=== PATIENT | female | born 1970 | race Caucasian/White ===

== ENCOUNTER 2017-03-11 11:50 | Inpatient (IN) | payer MEDICARE, MEDICAID, OTHER ==
[~2017-03-11] VITALS: Ht 167.6 cm; Wt 55.7 kg
[2017-03-11 11:56] VITALS: BP 137/90; PULSE 126; RESP 20; TEMP 98.2; O2SAT 98
[2017-03-11 12:52] VITALS: BP 156/96; PULSE 115; RESP 20; TEMP 98; O2SAT 100
[2017-03-11] MEDS ORDERED: XANA1TAB2 PO (13:01)
[2017-03-11] MEDS ORDERED: GABA100C4 PO (13:01)
[2017-03-11] MEDS ORDERED: ADDE30XR PO (13:01)
--- NOTE | 2017-03-11 13:18 | PD ---
HPI Chief Complaint: Psychiatric Symptoms Time Seen by Provider: 13:03 Travel History International Travel<30 days: No Contact w/Intl Traveler<30days: No Traveled to known affect area: No History of Present Illness HPI Patient is a 47-year-old female who was brought to emergency room by police officers under a Lee act. As per PD, patient was wandering outside of other people's properties today. Reports concerns that she may have been trespassing. Patient at this time denies suicidal or homicidal ideations. Patient denies drugs or alcohol. PFSH Past Medical History Medical History: Denies Significant Hx ?: Not Past Surgical History Surgical History: No Previous Surgery Social History Alcohol Use: No Tobacco Use: No Substance Use: No Allergies-Medications (Allergen,Severity, Reaction): Coded Allergies: Penicillins (Verified Allergy, Intermediate, 03/11/17) hives Reported Meds & Prescriptions Reported Meds & Active Scripts Active Macrobid (Nitrofurantoin Monoh/Nitrofur Macro) 100 Mg Cap 100 Mg PO BID 10 Days Reported Gabapentin Unknown Strength Cap Unknown Dose PO BID Adderall Xr 24 HR (Amphetamine/Dextroamphetamine) 30 Mg Cap 30 Mg PO DAILY Once daily in the morning. Xanax (Alprazolam) 1 Mg Tab 1 Mg PO Q6H PRN Review of Systems General / Constitutional: No: Fever Eyes: No: Visual changes HENT: No: Headaches Cardiovascular: No: Chest Pain or Discomfort Respiratory: No: Shortness of Breath Gastrointestinal: No: Abdominal Pain Genitourinary: No: Dysuria Musculoskeletal: No: Pain Skin: No Rash Neurologic: No: Weakness Psychiatric: No: Depression Endocrine: No: Polydipsia Hematologic/Lymphatic: No: Easy Bruising Physical Exam Narrative GENERAL: nad SKIN: Focused skin assessment warm/dry. HEAD: Atraumatic. Normocephalic. EYES: Pupils equal and round. No scleral icterus. No injection or drainage. ENT: No nasal bleeding or discharge. Mucous membranes pink and moist. NECK: Trachea midline. No JVD. CARDIOVASCULAR: Regular rate and rhythm. No murmur appreciated. RESPIRATORY: No accessory muscle use. Clear to auscultation. Breath sounds equal bilaterally. GASTROINTESTINAL: Abdomen soft, non-tender, nondistended. Hepatic and splenic margins not palpable. MUSCULOSKELETAL: No obvious deformities. No clubbing. No cyanosis. No edema. NEUROLOGICAL: Awake and alert. No obvious cranial nerve deficits. Motor grossly within normal limits. Normal speech. PSYCHIATRIC: Appropriate mood and affect; insight and judgment normal. Denies si /hi Data Data Last Documented VS Vital Signs Date Time Temp Pulse Resp B/P (MAP) Pulse Ox O2 Delivery O2 Flow Rate FiO2 03/11/17 12:52 98.0 115 20 156/96 (116) 100 03/11/17 11:56 Room Air Orders Orders Complete Blood Count With Diff (03/11/17 12:29) Comprehensive Metabolic Panel (03/11/17 12:29) Urinalysis - C+S If Indicated (03/11/17 12:29) Psych Screen (03/11/17 12:29) Drug Screen, Random Urine (03/11/17 12:29) Alcohol (Ethanol) (03/11/17 12:29) Salicylates (Aspirin) (03/11/17 12:29) Tylenol (Acetaminophen) (03/11/17 12:29) Chest, Single Ap (03/11/17 15:37) Ecg Monitoring (03/11/17 15:37) Iv Access Insert/Monitor (03/11/17 15:37) Sodium Chloride 0.9% Flush (Ns Flush) (03/11/17 15:45) Sodium Chlor 0.9% 1000 Ml Inj (Ns 1000 M (03/11/17 15:45) Sodium Chlor 0.9% 1000 Ml Inj (Ns 1000 M (03/11/17 15:45) Diet Regular Basic (03/11/17 Lunch) Urine Culture (03/11/17 15:00) Ciprofloxacin 400 Mg Premix (Cipro 400 M (03/11/17 16:00) Haloperidol Inj (Haldol Inj) (03/11/17 16:30) Lorazepam Inj (Ativan Inj) (03/11/17 16:30) Blood Culture (03/11/17 16:22) Vascular Access Team Consult/P PRN (03/11/17 16:33) Vascular Poc Ultrasound (03/11/17 ) Labs Laboratory Tests Test 03/11/17 14:45 03/11/17 15:00 Salicylates Level LESS THAN 1.7 MG/DL White Blood Count 17.0 TH/MM3 Red Blood Count 4.27 MIL/MM3 Hemoglobin 13.1 GM/DL Hematocrit 39.6 % Mean Corpuscular Volume 92.8 FL Mean Corpuscular Hemoglobin 30.6 PG Mean Corpuscular Hemoglobin Concent 33.0 % Red Cell Distribution Width 14.2 % Platelet Count 266 TH/MM3 Mean Platelet Volume 9.0 FL Neutrophils (%) (Auto) 84.1 % Lymphocytes (%) (Auto) 8.4 % Monocytes (%) (Auto) 6.5 % Eosinophils (%) (Auto) 0.6 % Basophils (%) (Auto) 0.4 % Neutrophils # (Auto) 14.3 TH/MM3 Lymphocytes # (Auto) 1.4 TH/MM3 Monocytes # (Auto) 1.1 TH/MM3 Eosinophils # (Auto) 0.1 TH/MM3 Basophils # (Auto) 0.1 TH/MM3 CBC Comment AUTO DIFF Differential Comment AUTO DIFF CONFIRMED Urine Color COLORLESS Urine Turbidity HAZY Urine pH 6.0 Urine Specific Eure 1.001 Urine Protein NEG mg/dL Urine Glucose (UA) NEG mg/dL Urine Ketones NEG mg/dL Urine Occult Blood TRACE Urine Nitrite POS Urine Bilirubin NEG Urine Urobilinogen LESS THAN 2.0 MG/DL Urine Leukocyte Esterase MOD Urine RBC 1 /hpf Urine WBC 7 /hpf Urine Squamous Epithelial Cells 2 /hpf Urine Amorphous Sediment RARE Microscopic Urinalysis Comment CULTURE INDICATED Blood Urea Nitrogen 19 MG/DL Creatinine 1.13 MG/DL Random Glucose 103 MG/DL Total Protein 8.4 GM/DL Albumin 4.1 GM/DL Calcium Level 9.4 MG/DL Alkaline Phosphatase 81 U/L Aspartate Amino Transf (AST/SGOT) 27 U/L Alanine Aminotransferase (ALT/SGPT) 26 U/L Total Bilirubin 0.5 MG/DL Sodium Level 136 MEQ/L Potassium Level 4.6 MEQ/L Chloride Level 103 MEQ/L Carbon Dioxide Level 21.6 MEQ/L Anion Gap 11 MEQ/L Estimat Glomerular Filtration Rate 52 ML/MIN Urine Opiates Screen NEG Acetaminophen Level LESS THAN 2.0 MCG/ML Urine Barbiturates Screen NEG Urine Amphetamines Screen POS Urine Benzodiazepines Screen NEG Urine Cocaine Screen NEG Urine Cannabinoids Screen NEG Ethyl Alcohol Level LESS THAN 3 MG/DL MDM Medical Decision Making Medical Screen Exam Complete: Yes Emergency Medical Condition: Yes Medical Record Reviewed: Yes Interpretation(s) Vital Signs Date Time Temp Pulse Resp B/P (MAP) Pulse Ox O2 Delivery O2 Flow Rate FiO2 03/11/17 12:52 98.0 115 20 156/96 (116) 100 03/11/17 11:56 98.2 126 20 137/90 (106) 98 Room Air Differential Diagnosis depression, bipolar disorder, drug abuse Narrative Course Psychiatric screening labs ordered. Patient denies si/hi at this time. Patient contracts for safety Patient is tachycardic with a white blood cell count of 17,000, patient with SIRS criteria. Infection was likely from UTI. I discussed with patient need for an IV line for IV antibiotics as well as for IV fluids. She is currently refusing further workup. Patient is here under Lee acts and will require chemical sedation for her safety and for further workup prior to being cleared for psychiatric screening. Diagnosis Primary Impression: UTI (urinary tract infection) Additional Impression: SIRS (systemic inflammatory response syndrome) Patient Instructions: General Instructions Additional Instructions: Please provide patient with a copy of their lab work and studies at discharge* * Please follow up with your primary care doctor in 2-3 days Return to the ER if symptoms worsen or progress Return to the ER as needed Please take all antibiotics as prescribed Please follow-up with all cultures from today Med/Other Pt SpecificInfo: Prescription(s) given Scripts Nitrofurantoin Monohydrate Macrocrystals (Macrobid) 100 Mg Cap 100 MG PO BID for Infection for 10 Days, #20 CAP 0 Refills Prov: Isabela Pina DO 03/11/17 Isabela Pina DO Mar 11, 2017 13:18
[2017-03-11 15:33] LABS: AUTOMATED NEUTROPHIL # 14.3 TH/MM3 (1.8-7.7); BASOPHIL # 0.1 TH/MM3 (0-0.2); BASOPHIL % 0.4 % (0.0-2.0); EOSINOPHIL # 0.1 TH/MM3 (0-0.4); EOSINOPHIL % 0.6 % (0.0-4.0); HEMATOCRIT 39.6 % (35.0-46.0); LYMPH % 8.4 % (9.0-44.0); LYMPHOCYTE # 1.4 TH/MM3 (1.0-4.8); MEAN CELL VOLUME 92.8 FL (80.0-100.0); MEAN CORPUSCULAR HEMOGLOBIN 30.6 PG (27.0-34.0); MONO % 6.5 % (0.0-8.0); NEUT % 84.1 % (16.0-70.0); PLATELET COUNT 266 TH/MM3 (150-450); RED BLOOD COUNT 4.27 MIL/MM3 (4.00-5.30); RED CELL DISTRIBUTION WIDTH 14.2 % (11.6-17.2)
[2017-03-11 15:35] LABS: HEMO FLAGS AUTO DIFF
[2017-03-11 15:41] LABS: BLOOD, URINE TRACE (NEG); COMMENT (UR) CULTURE INDICATED; CULTURE IF INDICATED CULTURE INDICATED; GLUCOSE,URINE NEG (NEG); KETONE, URINE NEG (NEG); NITRITE,URINE POS (NEG); SQUAMOUS EPITHELIAL CELL URINE 2 /hpf (0-5); URINE COLOR COLORLESS (YELLW/STRAW)
[2017-03-11] MEDS ORDERED: SODIUM CHLOR 0.9% 1000 ML INJ 1,000 ML IV ONE ×2 (15:45)
[2017-03-11] MEDS ORDERED: SODIUM CHLORIDE 0.9% FLUSH 10 ML FLUSH IVF PRN (15:45)
[2017-03-11] MEDS ORDERED: MACR100C2 PO (15:51)
[2017-03-11 15:56] LABS: ALKALINE PHOSPHATASE 81 U/L (45-117); TOTAL BILIRUBIN ADULT 0.5 MG/DL (0.2-1.0)
[2017-03-11 15:57] LABS: ALT (GPT) 26 U/L (10-53); ANION GAP 11 MEQ/L (5-15); AST (GOT) 27 U/L (15-37); BICARBONATE 21.6 MEQ/L (21.0-32.0); BLOOD UREA NITROGEN 19 MG/DL (7-18); CHLORIDE 103 MEQ/L (98-107); GLOMERULAR FILTRATION RATE 52 ML/MIN (>89); POTASSIUM 4.6 MEQ/L (3.5-5.1); SODIUM (NA) 136 MEQ/L (136-145)
[2017-03-11 16:00] VITALS: PULSE 114; RESP 16; O2SAT 99
[2017-03-11] MEDS ORDERED: CIPROFLOXACIN 400 MG PREMIX 200 ML IV ONE (16:00)
[2017-03-11 16:04] LABS: ACETAMINOPHEN LESS THAN 2.0 MCG/ML (10.0-30.0); ALCOHOL LESS THAN 3 MG/DL (0-5); SCAN/DIFF AUTO DIFF CONFIRMED
--- NOTE | 2017-03-11 16:13 | RADRPT ---
EXAM DATE/TIME: 03/11/2017 15:42 [facility] COMPARISON: No previous studies available for comparison. INDICATIONS : Cough MEDICAL HISTORY : Cardiovascular disease. SURGICAL HISTORY : CABG. ENCOUNTER: Initial ACUITY: 1 day PAIN SCORE: 0/10 LOCATION: chest FINDINGS: AP view of the chest demonstrates a normal-sized cardiac silhouette in this patient post median judd otomy and valve replacement. No pleural effusion, airspace consolidation, or pneumothorax is identifi ed. The bones and soft tissues demonstrate no acute finding. CONCLUSION: No acute cardiopulmonary abnormality is identified. Mars Hatfield MD on March 11, 2017 at 16:10 Board Certified Radiologist. This report was verified electronically.
[2017-03-11] MEDS ORDERED: HALOPERIDOL LACTATE 5 MG/ML AMP IM ONE (16:30)
[2017-03-11] MEDS ORDERED: LORazepam 2 MG/ML VIAL IM ONE (16:30)
[2017-03-11 19:00] VITALS: PULSE 125; RESP 16; O2SAT 98
[2017-03-12 01:50] VITALS: BP 128/72; PULSE 96; RESP 20; O2SAT 100
[2017-03-12 03:24] VITALS: BP 118/82; PULSE 106; RESP 20; O2SAT 98
[2017-03-12 17:36] VITALS: BP 104/67; PULSE 95; RESP 18; TEMP 99.2; O2SAT 98
[2017-03-13 06:17] VITALS: BP 126/74; PULSE 86; RESP 18; O2SAT 97
[2017-03-13] MEDS ORDERED: ALUMINUM/MAGNESIUM/SIMETH 30 ML CUP PO PRN (10:45)
[2017-03-13] MEDS ORDERED: NICOTINE 21 MG/24 HR PATCH T-DERMAL SCH (10:45)
[2017-03-13] MEDS ORDERED: ACETAMINOPHEN 325 MG TAB PO PRN (10:45)
[2017-03-13] MEDS ORDERED: MAGNESIUM HYDROXIDE SUSP 30 ML CUP PO PRN (10:45)
[2017-03-13] MEDS ORDERED: OLANZapine IM 10 MG VIAL IM PRN (11:00)
--- NOTE | 2017-03-13 11:34 | HHI.HP ---
Provisional Diagnosis Admission Date Mar 13, 2017 at 10:49 [place] I. Unspecified psychosis vs substance-induced psychosis, history of bipolar disorder, ADHD, anxiety, amphetamines and sedative hypnotics use disorder [place] II. Deferred [place] III. No significant medical history [place] IV. Unemployed [place] V. 40 Certification of Person's Competence To Provide Express and Informed Consent I have personally examined Jocy Mathias , a person being served at [facility] on, Mar 13, 2017 11:20. Express and informed consent means consent voluntarily given in writing, by a competent person, after sufficient explanation and disclosure of the subject matter involved to enable the person to make a knowing and willful decision without any element of force, fraud, deceit, duress, or other form of constraint or coercion. This person is 18 years of age or older, is not now known to be incompetent to consent to treatment with a guardian advocate, and does not have a health care surrogate or proxy currently making medical treatment decisions. I have found this person to be one of the following: [] Competent to provide express and informed consent, as defined above, for voluntary admission to this facility and is competent to provide express and informed consent for treatment. He/she has the consistent capacity to make well reasoned, willful, and knowing decisions concerning his or her medical or mental health treatment. The person fully and consistently understands the purpose of the admission for examination/placement and is fully capable of personally exercising all rights [place] Incompetent to provide express and informed consent to voluntary admission, and this is incompetent to provide express and informed consent to treatment. The person must be transferred to involuntary status and a petition for a guardian advocate filed with the Circuit Court. [x] Refusing to provide express and informed consent to voluntary admission but is competent to provide express and informed consent for treatment. The person must be discharged or transferred to involuntary status. Form shall be completed within 24 hours of a person's arrival at the receiving facility and filed in the clinical record of each person: 1. Admitted on a voluntary basis 2. Permitted to provide express and informed consent to his/her own treatment 3. Allowed to transfer from involuntary to voluntary status 4. Prior to permitting a person to consent to his or her own treatment after having been previously found incompetent to consent to treatment. History of Present Illness Capacity: Has Capacity HPI The patient is a 47-year-old woman, domiciled in [facility] with her boyfriend, unemployed, supported by [facility], , with psychiatric history of self reported depression, anxiety, ADHD, previous psychiatric hospitalizations, no previous suicidal attempts, [facility], and she is on Xanax 2 mg 3 times a day, Adderall 40 mg pe day? ?, Patient does not remember the name of her psychiatrist, no significant medical history, who was brought to the hospital under Lee act as the patient was found trespassing houses in the [facility] stating that she was looking for her mother. On psychiatric evaluation today the patient seems to be very confused, disorganized, tangential. The patient says that she doesn't know the reason she is here, she says that she has been looking for her mother "to finish some business with her". Patient says that she feels that she is psychotic "because I have not taken my Xanax and Adderall for 3 weeks now". She was confronted about toxicology positive for amphetamines, but she says that she doesn't know how this medication got into her body. During the evaluation the patient is internally stimulated, with frequent derailment, laughing inappropriately with very inappropriate affect. Patient denies visual and auditory hallucinations, she denies suicidal and homicidal ideation. Patient says that she wants to be discharged because she needs to go to [place] now to picking tech her car "that is somewhere around there". She was unable to provide a telephone number for her boyfriend for collateral information. The patient denies the use of illegal drugs, such as cocaine, heroine, cannabis, PCP , and denies the use of alcohol. Review of Systems Constitutional: DENIES: Diaphoretic episodes, Fatigue, Fever, Weight gain, Weight loss, Chills, Dizziness, Change in appetite, Night Sweats Endocrine: DENIES: Abnorml menstrual pattern, Heat/cold intolerance, Polydipsia , Polyuria, Polyphagia Eyes: DENIES: Blurred vision, Diplopia, Eye inflammation, Eye pain, Vision loss , Photosensitivity, Double Vision Ears, nose, mouth, throat: DENIES: Tinnitus, Hearing loss, Vertigo, Nasal discharge, Oral lesions, Throat pain, Hoarseness, Ear Pain, Running Nose, Epistaxis, Sinus Pain, Toothache, Odynophagia Respiratory: DENIES: Apneas, Cough, Snoring, Wheezing, Hemoptysis, Sputum production, Shortness of breath Cardiovascular: DENIES: Chest pain, Palpitations, Syncope, Dyspnea on Exertion , PND, Lower Extremity Edema, Orthopnea, Claudication Gastrointestinal: DENIES: Abdominal pain, Black stools, Bloody stools, Constipation, Diarrhea, Nausea, Vomiting, Difficulty Swallowing, Anorexia Genitourinary: DENIES: Abnormal vaginal bleeding, Dysmenorrhea, Dyspareunia, Sexual dysfunction, Urinary frequency, Urinary incontinence, Urgency, Hematuria , Dysuria, Nocturia, Vaginal discharge Musculoskeletal: DENIES: Joint pain, Muscle aches, Stiffness, Joint Swelling, Back pain, Neck pain Integumentary: DENIES: Abnormal pigmentation, Pruritus, Rash, Nail changes, Breast masses, Breast skin changes, Nipple discharge Hematologic/lymphatic: DENIES: Bruising, Lymphadenopathy Immunologic/allergic: DENIES: Eczema, Urticaria Neurologic: DENIES: Abnormal gait, Headache, Localized weakness, Paresthesias, Seizures, Speech Problems, Tremor, Poor Balance Psychiatric: COMPLAINS OF: Confusion, Delusions, DENIES: Anxiety, Mood changes , Depression, Hallucinations, Agitation, Suicidal Ideation, Homicidal Ideation Past Psych History Violence risk - self (6 mos) Elevated risk of danger to self and others due to level of psychosis Substance Abuse History Drugs/Alcohol past 12 months She denies the use of drugs and alcohol Past Family Social History Coded Allergies: Penicillins (Verified Allergy, Intermediate, 03/11/17) hives Active Scripts Nitrofurantoin Monohydrate Macrocrystals (Macrobid) 100 Mg Cap, 100 MG PO BID for Infection for 10 Days, #20 CAP 0 Refills Prov:YovaniIsabelachi Laird DO 03/11/17 Reported Medications Gabapentin (Gabapentin) Unknown Strength Cap, PO BID, #60 CAP 0 Refills 03/11/17 Amphetamine-Dextroamphetamine ER 24 HR (Adderall Xr 24 HR) 30 Mg Cap, 30 MG PO DAILY for Hyperactivity Control, #30 CAP 0 Refills Once daily in the morning. 03/11/17 Alprazolam (Xanax) 1 Mg Tab, 1 MG PO Q6H Y for ANXIETY, TAB 0 Refills 03/11/17 Current Medications Medications (Trade) Dose Ordered Sig/Bao Route Start Time Stop Time Status Last Admin (NS Flush) 2 ml UNSCH PRN IVF 03/11/17 15:45 (Tylenol) 650 mg Q4H PRN PO 03/13/17 10:45 (Milk Of Magnesia Liq) 30 ml DAILY PRN PO 03/13/17 10:45 (Mag-Al Plus Susp Liq) 30 ml Q6H PRN PO 03/13/17 10:45 (ZyPREXA INJ) 10 mg Q12H PRN IM 03/13/17 11:00 (risperDAL) 0.5 mg BID PO 03/13/17 21:00 Family Psych History Patient denies family psychiatric history Social History Patient was born and raised in [place], she lives in [place] with her boyfriend, she is unemployed, supported by [employer], she is a , service connected, highest level of education is some college Patient's Strengths (min. 2) Verbal communication Physical Exam Patient is disorganized, restless, but no withdrawal symptoms, no EPS present Vital Signs Vital Signs Date Time Temp Pulse Resp B/P (MAP) Pulse Ox O2 Delivery O2 Flow Rate FiO2 03/13/17 06:17 86 18 126/74 (91) 97 03/12/17 17:36 99.2 03/12/17 03:24 Room Air Lab Results Date/Time Source Procedure Growth Status 03/11/17 17:45 Blood Peripheral Aerobic Blood Culture - Preliminary NO GROWTH IN 2 DAYS Resulted 03/11/17 17:45 Blood Peripheral Anaerobic Blood Culture - Preliminary NO GROWTH IN 2 DAYS Resulted 03/11/17 15:00 Urine Random Urine Urine Culture - Final Staphylococcus Aureus Complete Mental Status Examination Appearance: Dirty, Disheveled Consciousness: Clouded Orientation: Person, Date/Time Speech: Rapid Language: Adequate Fund of Knowledge: Adequate Attention and Concentration: Easily Distracted Memory: Unremarkable Mood: Angry Affect: Irritable Thought Process & Associations: Loose associations, Tangential Thought Content: Bizarre thinking, Preoccupations Hallucination Type: None Delusion Type: Bizarre, Paranoid Suicidal Ideation: No Suicidal Plan: No Suicidal Intention: No Homicidal Ideation: No Homicidal Plan: No Homicidal Intention: No Insight: Poor Judgment: Poor Assessment & Plan Problem List: (1) Unspecified psychosis ICD Codes: F29 - Unspecified psychosis not due to a substance or known physiological condition Assessment & Plan: On psychiatric evaluation today the patient presents with acute psychotic and cognitive symptoms consistent in disorganized behavior and speech, paranoia, agitation, confusion, disorientation, internal preoccupation, very inappropriate affect. Patient was found by police wandering in people houses in the [facility] and that she was looking for her mother and due to the level of disorganization and psychosis the patient was Lee acted. Patient reports psychiatric history of bipolar disorder, ADHD, anxiety, and she claims that she has outpatient psychiatric care and using Xanax and amphetamines. Patient is positive for amphetamines in toxicology. At this point is unclear if current mental status is related with intoxication with amphetamines or related to make a primary psychiatric illness decompensation. The patient is not safe to be discharged at this moment. He is to be admitted in psychiatry for longitudinal observation of mood and thought process before taking at further decision. Collateral information is needed in order to complete the psychiatric assessment. Order olanzapine 10 mg IM every 8 hours when necessary aggressive behavior and agitation, and also Risperdal 1 mg twice a day for psychosis. Transfer to psychiatry to 2700 unit. Present supportive psychotherapy provided. abatement worker intervention for collateral information, group and individual psychotherapy, To coordinate a safe discharge. Assessment & Plan Estimated LOS: Chester Henriquez MD Mar 13, 2017 11:34
[2017-03-13 11:38] VITALS: BP 124/87; PULSE 100; RESP 17; TEMP 98.2; O2SAT 97
[2017-03-13] MEDS: GABAPENTIN 300 MG CAP PO SCH (18:00)
[2017-03-13] MEDS: risperiDONE 0.5 MG TAB PO SCH (20:19)
[2017-03-13 20:54] VITALS: BP 108/67; PULSE 92; RESP 17; TEMP 98; O2SAT 97
[2017-03-14] MEDS: GABAPENTIN 300 MG CAP PO SCH ×3 (08:34→17:05)
[2017-03-14] MEDS: risperiDONE 0.5 MG TAB PO SCH ×3 (08:36→21:00)
--- NOTE | 2017-03-14 14:36 | HHI.PYPN ---
Subjective Remarks This is a request for second opinion. Admission note was reviewed and I agree with the history. Patient was on Macrobid 100 mg by mouth twice a day is written in the ER. Patient remains oppositional with poor insight. Continues to seek benzodiazepines. She is resistant with her medications saying that low- dose Risperdal gave her a "anxiety reaction." And willing to take other antipsychotics. Minimizes her history. Denies psychotic symptoms at this time. Denies suicidal homicidal ideation intent or plan Mental Status Examination Appearance: Dirty, Disheveled Consciousness: Clouded Orientation: Person, Date/Time Speech: Rapid Language: Adequate Fund of Knowledge: Adequate Attention and Concentration: Easily Distracted Memory: Unremarkable Mood: Angry Affect: Irritable Thought Process & Associations: Loose associations, Tangential Thought Content: Bizarre thinking, Preoccupations Hallucination Type: None Delusion Type: Bizarre, Paranoid Suicidal Ideation: No Suicidal Plan: No Suicidal Intention: No Homicidal Ideation: No Homicidal Plan: No Homicidal Intention: No Insight: Poor Judgment: Poor Results Labs Date/Time Source Procedure Growth Status 03/11/17 17:45 Blood Peripheral Aerobic Blood Culture - Preliminary NO GROWTH IN 3 DAYS Resulted 03/11/17 17:45 Blood Peripheral Anaerobic Blood Culture - Preliminary NO GROWTH IN 3 DAYS Resulted 03/11/17 15:00 Urine Random Urine Urine Culture - Final Staphylococcus Aureus Complete Vitals/IOs Vital Signs Date Time Temp Pulse Resp B/P (MAP) Pulse Ox O2 Delivery O2 Flow Rate FiO2 03/13/17 20:54 98.0 92 17 108/67 (81) 97 03/12/17 03:24 Room Air Assessment & Plan Problem List: (1) Unspecified psychosis ICD Codes: F29 - Unspecified psychosis not due to a substance or known physiological condition Assessment & Plan Start Macrobid 100 mg by mouth twice a day.. I agree with the first opinion to continue petition. Criteria include acute psychosis and bizarre behavior Justification for Cont. Inpt. Patient would decompensate in a less restrictive setting Yahir Regan DO Mar 14, 2017 14:36
[2017-03-14 16:43] VITALS: BP 121/80; PULSE 95; RESP 18; TEMP 98.3; O2SAT 98
[2017-03-15 05:50] VITALS: BP 113/76; PULSE 105; RESP 17; TEMP 98.1; O2SAT 95
[2017-03-15] MEDS: GABAPENTIN 300 MG CAP PO SCH ×3 (08:06→17:18)
[2017-03-15 09:21] LABS: ANION GAP 8 MEQ/L (5-15); BICARBONATE 25.6 MEQ/L (21.0-32.0); BLOOD UREA NITROGEN 9 MG/DL (7-18); CHLORIDE 105 MEQ/L (98-107); GLOMERULAR FILTRATION RATE 67 ML/MIN (>89); POTASSIUM 4.1 MEQ/L (3.5-5.1); SODIUM (NA) 139 MEQ/L (136-145)
[2017-03-15 09:26] LABS: LDL CHOLESTEROL 115 MG/DL (0-99)
--- NOTE | 2017-03-15 12:30 | PD.TTN ---
Patient Problems 1. Discharge planning 2. Medication compliance 3. Knowledge deficit 4. Lack of coping skills Progress Toward Goals Provider Present: Dr. Zachery Alaniz Provider Input: Pt is new to the unit and medication regiment will be evaluated/adjusted as necessary. Nurse(s) Present: Angelia Gallo RN Nurse(s) Input: Pt is new to the unit and is being evaluated and monitored on unit. Psychiatric Counselors Present: BRANDAN Ventura Psych Therapist Input: Pt is new and biopsychosocial evaluation will be completed. Group Spec/RT/OT/MENDEZ Present: Kalin Herrera OT Group Spec/RT/OT/MENDEZ Input: Pt is new to the unit and evaluation will be completed. Discharge Plan Pt discharge plan will be formulated as treatment progresses. Documentation Scribe: BRANDAN Ventura Jonathan LMHC Mar 15, 2017 12:30
[2017-03-15] MEDS ORDERED: ACETAMINOPHEN 325 MG TAB PO PRN (15:45)
--- NOTE | 2017-03-15 15:46 | HHI.PYPN ---
Subjective Remarks Patient seen in her room with nurse Angelia and medical student Ryan, chart review, patient initially admitted by Dr. Ceron'kristan his initial psyche will reviewed and agreed with. I have finished the admitting psychiatric template. Patient seen by me today with staff patient is a thin slender white female appears younger than her stated age markedly disorganized and confused about the events leading to hospitalization she is giving contradictory statements related to her amphetamine use initially stating as documented in the record 2 weeks off of it when stating she has been back on it for a couple of days. She does acknowledge multiple drug abuse and number of years ago including hallucinogenic some ecstasy. She states she is having a Lee act with a boyfriend was trying to get her mother's old home. Then she will go back with her boyfriend if discharged from here. Then stated she was upset because she just found out that her old boyfriend yesterday. She did give us permission to talk with the mother to get some verification of this history. She denies suicidality homicidality voices or visions. At time she also appears to be responding to internal stimulus and there are delays in her responses she is also refusing her Respinol at this time she states that she is a psychiatrist out of [facility] who prescribes her Adderall Xanax gabapentin and Ambien and Flexeril Review of Systems Except as stated in HPI: all other systems reviewed are Neg Mental Status Examination Appearance: Dirty, Disheveled Consciousness: Alert, Highly Distractible Orientation: Person, Date/Time Motor Activity: Normal gait Speech: Pressured, Rapid Language: Adequate Fund of Knowledge: Adequate Attention and Concentration: Easily Distracted Memory: Unremarkable Mood: Angry, Irritable Affect: Other (slight increased range and intensity) Thought Process & Associations: Loose associations, Tangential Thought Content: Bizarre thinking, Preoccupations Hallucination Type: None Delusion Type: Bizarre, Paranoid Suicidal Ideation: No Suicidal Plan: No Suicidal Intention: No Homicidal Ideation: No Homicidal Plan: No Homicidal Intention: No Insight: Poor Judgment: Poor Results Labs Test 03/15/17 08:47 Blood Urea Nitrogen 9 MG/DL Creatinine 0.90 MG/DL Random Glucose 85 MG/DL Calcium Level 9.2 MG/DL Sodium Level 139 MEQ/L Potassium Level 4.1 MEQ/L Chloride Level 105 MEQ/L Carbon Dioxide Level 25.6 MEQ/L Anion Gap 8 MEQ/L Estimat Glomerular Filtration Rate 67 ML/MIN Triglycerides Level 100 MG/DL Cholesterol Level 205 MG/DL LDL Cholesterol 115 MG/DL HDL Cholesterol 70.0 MG/DL Cholesterol/HDL Ratio 2.92 RATIO Date/Time Source Procedure Growth Status 03/11/17 17:45 Blood Peripheral Aerobic Blood Culture - Preliminary NO GROWTH IN 4 DAYS Resulted 03/11/17 17:45 Blood Peripheral Anaerobic Blood Culture - Preliminary NO GROWTH IN 4 DAYS Resulted 03/11/17 15:00 Urine Random Urine Urine Culture - Final Staphylococcus Aureus Complete Vitals/IOs Vital Signs Date Time Temp Pulse Resp B/P (MAP) Pulse Ox O2 Delivery O2 Flow Rate FiO2 03/15/17 05:50 98.1 105 17 113/76 (88) 95 03/12/17 03:24 Room Air Assessment & Plan Problem List: (1) Unspecified psychosis ICD Codes: F29 - Unspecified psychosis not due to a substance or known physiological condition Assessment & Plan Estimated LOS: days patient remains confused with psychotic features showing no insight into her issues Justification for Cont. Inpt. At this time patient decompensate with placed a lower level of care Discharge Planning Patient giving confusing statements about placement after discharge we need to verify information with her mother Mars Alaniz MD Mar 15, 2017 15:46
[2017-03-15 17:13] VITALS: BP 123/85; PULSE 108; RESP 17; TEMP 98; O2SAT 96
[2017-03-15] MEDS: risperiDONE 0.5 MG TAB PO SCH (20:42)
[2017-03-15] MEDS: REMOVE OLD NICODERM (NICOTINE) PATCH T-DERMAL SCH (20:48)
[2017-03-15 21:17] LABS: HEMOGLOBIN A1a 1.1 %; HEMOGLOBIN A1b 0.8 %; HEMOGLOBIN Ao 86.1 %; HEMOGLOBIN F 1.5 %; HEMOGLOBIN LA1C 1.6 %; HEMOGLOBIN P3 3.3 %
[2017-03-16 05:50] VITALS: BP 118/65; PULSE 104; RESP 16; TEMP 98.3; O2SAT 97
[2017-03-16] MEDS: NICOTINE 21 MG/24 HR PATCH T-DERMAL SCH (08:07)
[2017-03-16] MEDS: GABAPENTIN 300 MG CAP PO SCH ×3 (08:09→18:00)
[2017-03-16] MEDS: risperiDONE 0.5 MG TAB PO SCH ×2 (08:09→20:26)
--- NOTE | 2017-03-16 09:48 | HHI.PYPN ---
Subjective Remarks Patient seen in her room with medical student margie, and RN Angelia. Patient laying in bed with covers to her chin, she is napping to alert did recognize me from yesterday. Is calmer less intense though responding appropriately. She denies any voices or visions. Denies suicidality homicidality. States when she leaves she is going to go back to stay with her boyfriend of about 2 years. She states his name is James and that he is at [phone] attempted to reach him that there is no answer. For now continue treatment no change patient showing some increase compliance with medication Review of Systems Except as stated in HPI: all other systems reviewed are Neg Mental Status Examination Appearance: Dirty, Disheveled Consciousness: Alert, Highly Distractible Orientation: Person, Date/Time Motor Activity: Normal gait Speech: Pressured, Rapid Language: Adequate Fund of Knowledge: Adequate Attention and Concentration: Easily Distracted Memory: Unremarkable Mood: Angry, Irritable Affect: Other (slight increased range and intensity) Thought Process & Associations: Loose associations, Tangential Thought Content: Bizarre thinking, Preoccupations Hallucination Type: None Delusion Type: Bizarre, Paranoid Suicidal Ideation: No Suicidal Plan: No Suicidal Intention: No Homicidal Ideation: No Homicidal Plan: No Homicidal Intention: No Insight: Poor Judgment: Poor Results Labs Date/Time Source Procedure Growth Status 03/11/17 17:45 Blood Peripheral Aerobic Blood Culture - Preliminary NO GROWTH IN 4 DAYS Resulted 03/11/17 17:45 Blood Peripheral Anaerobic Blood Culture - Preliminary NO GROWTH IN 4 DAYS Resulted 03/11/17 15:00 Urine Random Urine Urine Culture - Final Staphylococcus Aureus Complete Vitals/IOs Vital Signs Date Time Temp Pulse Resp B/P (MAP) Pulse Ox O2 Delivery O2 Flow Rate FiO2 03/16/17 05:50 98.3 104 16 118/65 (20) 97 Assessment & Plan Problem List: (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 She is compliant medications. For now continue treatment no change will attempt to reach patient 's boyfriend later today and tomorrow Justification for Cont. Inpt. At this time patient decompensate the placement lower level of care Discharge Planning Probable return to living with her boyfriend Mars Alaniz MD Mar 16, 2017 09:48
--- NOTE | 2017-03-16 10:59 | PD.TTN ---
Patient Problems 1. Discharge planning 2. Medication compliance 3. Knowledge deficit 4. Lack of coping skills Progress Toward Goals Provider Present: Dr. Zachery Alaniz Provider Input: Pt is new to the unit and medication regiment will be evaluated/adjusted as necessary. 03/16- Pt meets criteria to be on unit and medication regiment will continue to be evaluated. Nurse(s) Present: Angelia Gallo RN Nurse(s) Input: Pt is new to the unit and is being evaluated and monitored on unit. 03/16- Pt appears confused, bizarre, disorganized, withdrawn but has no behavioral issues and is taking her medication. Psychiatric Counselors Present: BRANDAN Ventura Psych Therapist Input: Pt is new and biopsychosocial evaluation will be completed. 03/16- Pt appears confused, disorganized, guarded, appropriate and withdrawn. She presents with limited insight into condition and need for care. She vaguely mentions some substance abuse but has poor insight into this. She appears to be minimizing symptoms at this time and appears an inaccurate historian. No noted agitation or aggression. Pt appears to have some coping and emotional regulation skills as she has not had any outbursts on unit. Group Spec/RT/OT/MENDEZ Present: Kalin Herrera OT Group Spec/RT/OT/MENDEZ Input: Pt is new to the unit and evaluation will be completed. 03/16- Pt has isolated to her room since her admission. She will be encouraged by staff to participate in group activities. Discharge Plan Pt discharge plan will be formulated as treatment progresses. She lives in [place] and follows up through the [facility]. Documentation Scribe: BRANDAN Ventura Jonathan LMHC Mar 16, 2017 10:59
[2017-03-16 16:48] VITALS: BP 110/65; PULSE 107; RESP 18; TEMP 98.1; O2SAT 100
[2017-03-16] MEDS: REMOVE OLD NICODERM (NICOTINE) PATCH T-DERMAL SCH (19:11)
[2017-03-17 05:40] VITALS: BP 100/67; PULSE 109; RESP 18; TEMP 97.6; O2SAT 98
[2017-03-17] MEDS: NICOTINE 21 MG/24 HR PATCH T-DERMAL SCH (09:00)
[2017-03-17] MEDS: GABAPENTIN 300 MG CAP PO SCH ×2 (09:06→12:47)
[2017-03-17] MEDS: risperiDONE 0.5 MG TAB PO SCH (09:06)
[2017-03-17] MEDS ORDERED: RISP0.5T25 PO (10:00)
[2017-03-17] MEDS ORDERED: NEUR300C PO (10:00)
--- NOTE | 2017-03-17 10:04 | HHI.DS ---
Psychiatry Discharge Summary Inpatient Psychiatric care?: Yes Advance Directive: No Reason Not Provided: Pt does not have advance directive Mental Health AdvanceDirective: No Health Care Proxy: No Admission Admission Date Mar 13, 2017 at 10:49 Admission Diagnosis: (1) Brief reactive psychosis ICD Code: F23 - Brief psychotic disorder Brief History The patient is a 47-year-old woman, domiciled in [facility] with her boyfriend, unemployed, supported by [facility], , with psychiatric history of self reported depression, anxiety, ADHD, previous psychiatric hospitalizations, no previous suicidal attempts, she has established outpatient care with the [facility], and she is on Xanax 2 mg 3 times a day, Adderall 40 mg pe day? ?, Patient does not remember the name of her psychiatrist, no significant medical history, who was brought to the hospital under Lee act as the patient was found trespassing houses in the [facility] stating that she was looking for her mother. On psychiatric evaluation today the patient seems to be very confused, disorganized, tangential. The patient says that she doesn't know the reason she is here, she says that she has been looking for her mother "to finish some business with her". Patient says that she feels that she is psychotic "because I have not taken my Xanax and Adderall for 3 weeks now". She was confronted about toxicology positive for amphetamines, but she says that she doesn't know how this medication got into her body. During the evaluation the patient is internally stimulated, with frequent derailment, laughing inappropriately with very inappropriate affect. Patient denies visual and auditory hallucinations, she denies suicidal and homicidal ideation. Patient says that she wants to be discharged because she needs to go to [place] now to poultry picker her car "that is somewhere around there". She was unable to provide a telephone number for her boyfriend for collateral information. The patient denies the use of illegal drugs, such as cocaine, heroine, cannabis, PCP , and denies the use of alcohol. Tobacco Use In Past 30 Days: No Tobacco Past 30 Days Alcohol Use: Never Hospital Course Patient's hospital course was uneventful, she show compliance of the medication from admission though initially there is some reluctance, her initial confusion and disorientation slowly resolved. Patient seen today she is alert and oriented 4, she is clean and neat her hygiene is good, there is improved eye contact, she is more focused and processing well. She denies suicidality homicidality voices or visions. She does have a place residents along with her boyfriend's name is James at [phone]. Thus at this time patient no longer meets Lee criteria for inpatient psychiatric hospitalization. Patient to be discharged today to herself with Rx 1 month to follow-up with her private psychiatrist in the community. Strong recommendation absolute abstinence. Strong recommendation she discuss with a psychiatrist that her use of psychostimulants and benzodiazepines be discontinued. Also refer patient to NA Results Blood Pressure 100 / 67 Vital Signs Date Time Temp Pulse Resp B/P (MAP) Pulse Ox O2 Delivery O2 Flow Rate FiO2 03/17/17 05:40 97.6 109 18 100/67 (78) 98 Laboratory Tests Test 03/15/17 08:47 Estimat Glomerular Filtration Rate 67 ML/MIN (>89) Cholesterol Level 205 MG/DL (120-200) LDL Cholesterol 115 MG/DL (0-99) HDL Cholesterol 70.0 MG/DL (40.0-60.0) Laboratory Results Test 03/15/17 08:47 Cholesterol Level 205 MG/DL (120-200) HDL Cholesterol 70.0 MG/DL (40.0-60.0) Hemoglobin A1c 5.4 % (4.3-6.0) LDL Cholesterol 115 MG/DL (0-99) Triglycerides Level 100 MG/DL (42-150) Summary of Procedures None done Imaging Last Impressions Chest X-Ray 03/11/17 1537 Signed Impressions: Service Date/Time: March 15:42 - CONCLUSION: No acute cardiopulmonary abnormality is identified. Mars Hatfield MD Pending results at discharge: No Medications # of Antipsychotic meds at D/C: 1 Approp Antipsych med options 1 - Minimum of three failed multiple trials of monotherapy. 2 - Documented plan to taper to monotherapy due to previous use of multiple meds OR cross-taper in progress at D/C. 3 - Documentation of augmentation of Clozapine. 4 - Justification other than those listed in allowable values 1-3, document here : Discharge Discharge Date: Mar 17, 2017 Discharge Diagnosis: (1) Brief reactive psychosis ICD Code: F23 - Brief psychotic disorder Pt Condition on Discharge: Stable Discharge Disposition: Discharge Home Discharge Instructions Diet Instructions: As Tolerated, No Restrictions Activities you can perform: Regular-No Restrictions Scheduled Appointment: Private Psychiatrist Discharge Time > 30 minutes Mental Status Examination Appearance: Dirty, Disheveled Consciousness: Alert, Highly Distractible Orientation: Person, Date/Time Motor Activity: Normal gait Speech: Pressured, Rapid Language: Adequate Fund of Knowledge: Adequate Attention and Concentration: Easily Distracted Memory: Unremarkable Mood: Angry, Irritable Affect: Other (slight increased range and intensity) Thought Process & Associations: Loose associations, Tangential Thought Content: Bizarre thinking, Preoccupations Hallucination Type: None Delusion Type: Bizarre, Paranoid Suicidal Ideation: No Suicidal Plan: No Suicidal Intention: No Homicidal Ideation: No Homicidal Plan: No Homicidal Intention: No Insight: Poor Judgment: Poor Discharge/Advance Care Plan Health Problems: (1) Brief reactive psychosis Goals to promote your health * To prevent worsening of your condition and complications * To maintain your health at the optimal level Directions to meet your goals Take your medications as prescribed Follow your dietary instruction Follow activity as directed Keep your appointments as scheduled Take your immunizations and boosters as scheduled If your symptoms worsen call your PCP, if no PCP go to Urgent Care Center or Emergency Room For 23/11 questions related to your inpatient stay or results of tests pending at discharge, please contact Dr. Mars Alaniz at Smoking is Dangerous to Your Health. Avoid second hand smoking Mars Alaniz MD Mar 17, 2017 10:03
== END 2017-03-17 15:40 | disposition home or self-care (01) | DRG 885 ==
LOC: NEPD 11:50 → NEDA 03-13 10:49 → H270 03-13 11:25
PROVIDERS: ADMIT Psychiatry & Neurology Psychiatry; ATTEND Psychiatry & Neurology Psychiatry
DX: F23 Brief psychotic disorder (principal); N39.0 Urinary tract infection, site not specified; F31.9 Bipolar disorder, unspecified; F90.9 Attention-deficit hyperactivity disorder, unspecified type
CPT/HCPCS: 71010; 76937; 80048; 80053; 80061; 80307; 81001; 83036; 85025; 86403; 87040; 87086; 87186; 87205; 96365; 96372; J0744; J1630; J2060; J7030